=== PATIENT | female | born 1985 | race Caucasian/White ===

== ENCOUNTER 2017-11-05 10:02 | Emergency (ER) | payer MEDICAID, OTHER ==
[2017-11-05 10:09] VITALS: PULSE 82; RESP 17; TEMP 98; O2SAT 100; BMI 22.8
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
[2017-11-05 11:51] VITALS: BP 116/79
== END 2017-11-05 11:51 | disposition home or self-care (01) ==
LOC: H.ER 10:02
DX: S00.531A Contusion of lip, initial encounter (principal); S02.5XXB Fracture of tooth (traumatic), initial encounter for open fracture; Y93.55 Activity, bike riding